=== PATIENT | female | born 1990 | race African-American/Black ===

== ENCOUNTER 2016-11-30 11:39 | Emergency (ER) | payer SELFPAY | END 2016-11-30 12:10 | disposition home or self-care (01) | LOC: BURERS 11:39 | DX: S29.012A Strain of muscle and tendon of back wall of thorax, initial encounter (principal); S93.402A Sprain of unspecified ligament of left ankle, initial encounter; F31.9 Bipolar disorder, unspecified; I10 Essential (primary) hypertension; F17.210 Nicotine dependence, cigarettes, uncomplicated; V67.6XXA Passenger in heavy transport vehicle injured in collision with fixed or stationary object in traffic accident, initial encounter | CPT/HCPCS: 99283 ==